=== PATIENT | male | born 1985 | race Caucasian/White ===

== ENCOUNTER 2018-02-25 06:30 | Day surgery (SDC) | payer OTHER ==
[2018-02-25] MEDS ORDERED: LIDOCAINE 2% INJ 100 MG/5 ML SDV (FOR ANES.) As Ordered (07:13)
[2018-02-25] MEDS ORDERED: fentaNYL 250 MCG/5 ML INJECTION (J3010) As Ordered (07:13)
[2018-02-25] MEDS ORDERED: PROPOFOL 200 MG/20 ML VIAL As Ordered (07:13)
[2018-02-25] MEDS ORDERED: ROCURONIUM BROMIDE 50 MG/5 ML VIAL As Ordered (07:13)
[2018-02-25 07:14] LABS: INR 0.97; PARTIAL THROMBOPLASTIN TIME 29.8 SECONDS (25.4-37.6)
[2018-02-25] MEDS ORDERED: MIDAZOLAM INJ 2 MG/2 ML VIAL (J2250) As Ordered (07:14)
[2018-02-25] MEDS: OXYMETAZOLINE NASAL SPRAY (AFRIN) As Ordered (07:21)
[2018-02-25] MEDS: LIDOCAINE W/EPINEPHRINE 1% 20ML VIAL As Ordered (07:44)
[2018-02-25] MEDS ORDERED: METOCLOPRAMIDE INJ 10MG/2ML VIAL (J2765) As Ordered (07:58)
[2018-02-25] MEDS ORDERED: KETOROLAC 60 MG/2 ML VIAL (J1885) As Ordered (07:58)
[2018-02-25] MEDS ORDERED: dexameTHASONE 4 MG/ML 1ML VIAL (J1100) As Ordered ×3 (07:58)
[2018-02-25] MEDS ORDERED: ONDANSETRON 4MG/2ML VIAL (J2405) As Ordered (07:58)
[2018-02-25] MEDS ORDERED: HYDROmorphone HCL 2 MG/ML 1ML VIAL (J1170) As Ordered (08:03)
[2018-02-25] MEDS ORDERED: NEOSTIGMINE 10 MG/10 ML VIAL (J2710) As Ordered (08:44)
[2018-02-25] MEDS ORDERED: GLYCOPYRROLATE INJ 0.2 MG/ML 2 ML VIAL As Ordered (08:44)
[2018-02-25] MEDS ORDERED: fentaNYL 100 MCG/2 ML INJECTION (J3010) IV (09:30)
[2018-02-25] MEDS ORDERED: ONDANSETRON 4MG/2ML VIAL (J2405) IV (09:30)
[2018-02-25] MEDS ORDERED: LR 1,000 ML IV ×2 (09:30→09:45)
[2018-02-25] MEDS ORDERED: METOCLOPRAMIDE INJ 10MG/2ML VIAL (J2765) IV (09:30)
[2018-02-25] MEDS ORDERED: MEPERIDINE INJ 25 MG/ML VIAL (J2175) IV (09:30)
[2018-02-25] MEDS ORDERED: PERCOCET 5MG/325MG TAB As Ordered (13:41)
[2018-02-25] MEDS: PERCOCET 5MG/325MG TAB PO (13:43)
== END 2018-02-25 13:45 | disposition home or self-care (01) ==
LOC: M SDC 06:30
DX: K02.9 Dental caries, unspecified (principal); K01.1 Impacted teeth; K09.0 Developmental odontogenic cysts; E03.9 Hypothyroidism, unspecified; F17.210 Nicotine dependence, cigarettes, uncomplicated; Z79.899 Other long term (current) drug therapy
CPT/HCPCS: D7210